=== PATIENT | female | born 1990 | race Asian ===

== ENCOUNTER 2021-03-13 09:42 | Outpatient (REF) | payer BC, SELFPAY ==
[2021-03-13 13:31] LABS: CT PCR NOT DETECTED (Not Detect.); NG PCR NOT DETECTED (Not Detect.)
[2021-03-15 21:12] LABS: HPV mRNA E6/E7 rflx Not Detected (Not Detected)
== END 2021-03-13 09:43 | disposition home or self-care (01) ==
LOC: HO.LAB 09:42
PROVIDERS: Visit Provider Advanced Practice Midwife
DX: Z01.419 Encounter for gynecological examination (general) (routine) without abnormal findings (principal); N89.8 Other specified noninflammatory disorders of vagina; Z20.2 Contact with and (suspected) exposure to infections with a predominantly sexual mode of transmission
CPT/HCPCS: 87491; 87591; 87624; 88142

== ENCOUNTER 2022-05-24 11:08 | Outpatient (REF) | payer BC, SELFPAY ==
[2022-05-24 14:32] LABS: CT PCR NOT DETECTED (Not Detect.); NG PCR NOT DETECTED (Not Detect.)
[2022-05-25 09:20] LABS: BV Int Neg Control Negative (Negative); BV Int Pos Control Positive (Positive)
[2022-05-26 14:37] LABS: HPV mRNA E6/E7 rflx Not Detected (Not Detected)
== END 2022-05-24 11:09 | disposition home or self-care (01) ==
LOC: HO.LAB 11:08
PROVIDERS: Visit Provider Advanced Practice Midwife
DX: Z01.411 Encounter for gynecological examination (general) (routine) with abnormal findings (principal); Z11.51 Encounter for screening for human papillomavirus (HPV); R87.615 Unsatisfactory cytologic smear of cervix
CPT/HCPCS: 87480; 87491; 87510; 87591; 87624; 87660; 88142

== ENCOUNTER 2022-07-10 15:42 | Outpatient (REF) | payer BC, SELFPAY ==
--- NOTE | ~2022-07-10 | US_ITS ---
EXAMINATION: US PELVIS CLINICAL INFORMATION: Pelvic and perineal pain COMPARISON: Previous pelvic ultrasound April 2019 TECHNIQUE: Ultrasound of the pelvis is performed using both transabdominal and transvaginal transducers along with Doppler. Transvaginal imaging is performed due to inadequate visualization transabdominally. FINDINGS: The uterus is anteverted and measures 7.9 x 3.8 x 5.4 cm in dimension. No focal uterine lesion is seen. Endometrial thickness is normal measuring 1.3 cm. There are nabothian cysts in the cervix. The ovaries are normal. The right ovary measures 3.5 x 2.6 x 2.1 cm. The left ovary measures 2.1 x 1.1 x 1.8 cm. There is no fluid in the pelvis. US/US pelvic and transvaginal IMPRESSION: Unremarkable exam.
== END 2022-07-10 15:43 | disposition home or self-care (01) ==
LOC: HO.US 15:42
PROVIDERS: PCP Internal Medicine; Visit Provider Advanced Practice Midwife
DX: R10.2 Pelvic and perineal pain (principal)
CPT/HCPCS: 76830; 76856

== ENCOUNTER 2023-07-26 13:20 | Outpatient (AMB) | payer BC, SELFPAY ==
--- NOTE | 2023-07-26 14:13 | MHC.OFFWIV ---
Intake Vital Signs 07/26/23 14:15 Weight 102 lb BP 100/62 Blood Pressure Location Lt brachial Position Sitting Pulse 78 Pulse Source Pulse Oximeter Temp 98.8 F Temp Source Oral Pulse Oximetry (%) 98 Oxygen Delivery Method Room Air Intake Visit Reasons: EP Cough 2 weeks (masked Intake Note: Patient here for cough that has been present for about 2 weeks. she states symptoms started after having her flu shot. Patient Tobacco Use Status: Never used Tobacco Allergies allergic rhinitis Allergy (Unknown, Uncoded 07/26/23 14:16) Runny Nose Do you need a note to return to daycare/school/sports/work: No HPI HPI Comments History of Present Illness Details This is a 33-year-old female who presents to the office today for sick visit. Patient complaining of a persistent dry cough x2 weeks. She denies any sputum production. She denies any fevers or chills. She does report some mild anterior chest pain with the cough. She denies any shortness of breath. She also reports some intermittent wheezing. She denies any congestion, rhinorrhea, otalgia, or sore throat. [facility], [facility] Surgical History H/O ovarian cystectomy Family History Maternal Grandmother Colon cancer Social History Household Members: Spouse Housing: House Alcohol intake: never Patient Tobacco Use Status: Never used Tobacco Sexual orientation: Straight/Heterosexual Gender identity: Female Female Reproductive History Menstrual Age of Menarche: 14 Review of Systems Const All systems reviewed & are unremarkable except as noted in HPI and below Reports no additional complaints Eyes Reports no additional complaints ENT Reports no additional complaints Card Reports no additional complaints Resp Reports no additional complaints GI Reports no additional complaints Reports no additional complaints Musc Reports no additional complaints Skin/Breast Reports system reviewed and no additional complaints, except as documented Neuro Reports no additional complaints Psych Reports no additional complaints Endo Reports no additional complaints Stiven/Lymph Reports no additional complaints Aller/Immun Reports no additional complaints Physical Exam Vital Signs: Last Vital Signs Temp 98.8 F 07/26/23 14:15 Pulse 78 07/26/23 14:15 BP 100/62 07/26/23 14:15 Pulse Ox 98 10/06/23 14:15 Oxygen Delivery Method Room Air 07/26/23 14:15 Const Other: Vital signs reviewed. Constitutional: Non-toxic appearing. No acute distress. Well-developed and well-nourished. HEENT: Normocephalic and atraumatic. Tympanic membranes without erythema, edema, or bulging bilaterally. External auditory canals without erythema or edema bilaterally. Moist mucous membranes. No pharyngeal erythema or exudates. Skin: Warm and dry. No rashes or lesions noted. Neck: Full and painless range of motion. No cervical lymphadenopathy. Cardio: Regular rate and rhythm. No murmurs, gallops, or rubs. No lower extremity edema. No JVD. Pulmonary: No respiratory distress. No accessory muscle usage. Clear to auscultation bilaterally without wheezing, crackles, or rhonchi. Gastrointestinal: Soft, nontender, and nondistended in all 4 quadrants. Normoactive bowel sounds in all 4 quadrants. Genitourinary: No CVA tenderness. Musculoskeletal: Normal range of motion in joints throughout the body. No deformity or other signs of injury. Neuro: Alert and oriented x4. Cranial nerves 2-12 grossly intact. No focal deficits appreciated. Psych: Normal mood and affect. Assessment & Plan Assessment & Plan (1) Acute bronchitis: Code(s): J20.9 - Acute bronchitis, unspecified Plan: Patient is presenting to the office complaining of a persistent dry cough as well as intermittent wheezing. On physical examination, her lungs are clear to auscultation bilaterally. Her vital signs are stable, her physical exam is otherwise benign, and she is overall nontoxic appearing. Her history and physical most consistent with an acute bronchitis. Patient was sent home on p.o. prednisone 40 mg daily x5 days as well as p.o. benzonatate 100 mg 3 times daily as needed for cough. Chest x-ray was obtained. We will send is Z-Alfred if there is any evidence of pneumonia. Otherwise, recommended symptomatic management including rest, increased fluids, advil/tylenol for pain/fever, lidocaine patches to the chest wall. and over the counter throat lozenges/decongestants. Patient advised to follow up here or go to the emergency room for worsening/persistent symptoms. Orders: Orders XR chest 2V Today R05.9 - Cough, unspecified Medications: New prednisone 40 mg (2 x 20 mg) PO DAILY 10 tabs 0RF benzonatate 100 mg PO TID PRN 21 caps 0RF cough Coding Level of Care Code Est Pt Level 3 (99926) Diagnoses Acute bronchitis J20.9
[2023-07-26 14:15] VITALS: BP 100/62; PULSE 78; TEMP 37.1; O2SAT 98
== END 2023-07-26 15:25 | disposition home or self-care (01) ==
PROVIDERS: PCP Internal Medicine; Visit Provider Physician Assistant Medical
DX: J20.9 Acute bronchitis, unspecified (principal)
CPT/HCPCS: 99213

== ENCOUNTER 2023-07-26 14:30 | Outpatient (REF) | payer BC, SELFPAY | END 2023-07-26 14:31 | disposition home or self-care (01) | LOC: HO.HMGCX 14:30 | PROVIDERS: Visit Provider Physician Assistant Medical | DX: R05.9 Cough, unspecified (principal) | CPT/HCPCS: 71046 ==

== ENCOUNTER 2023-08-27 09:07 | Outpatient (AMB) | payer BC, SELFPAY ==
--- NOTE | 2023-08-27 09:11 | MHC.OFFVIS ---
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 Doing well with no concerns. She tries to eat healthy and stays active with exercise. Regular monthly periods lasting 5-6 days. She is c/o painful menstrual cramping and occasional cramping without periods. Denies vaginal odor, discharge and abnormal bleeding. Currently sexually active, admits to UPI. Not on control at this time. She denies vaginal itching, but complains of occasional painful cramping following sex Sexually active with her STI screening offered; she accepts. Denies family history of breast, ovarian or colon cancer. Last pap smear 05/25/22, was negative, but with mild inflammation. When she was last seen she had vaginitis. This was managed with [ ], [facility] Surgical History H/O ovarian cystectomy Family History Maternal Grandmother Colon cancer Social History Household Members: Spouse Housing: House Alcohol intake: never Patient Tobacco Use Status: Never used Tobacco Sexual orientation: Straight/Heterosexual Gender identity: Female Female Reproductive History Menstrual Age of Menarche: 14 Duration of menses: 3-5 days Date of last menstrual period: 08/13/23 control method: none Total pregnancies: 0 Date of last pap smear: 05/24/22 (neg pap and hpv) Review of Systems Const All systems reviewed & are unremarkable except as noted in HPI and below Reports as per HPI Eyes Reports no additional complaints ENT Reports no additional complaints Card Reports no additional complaints Resp Reports no additional complaints GI Reports as per HPI and Reports no additional complaints Reports as per HPI Musc Reports no additional complaints Skin/Breast Reports as per HPI Neuro Reports no additional complaints Psych Reports no additional complaints Endo Reports no additional complaints Stiven/Lymph Reports no additional complaints Aller/Immun Reports no additional complaints Physical Exam Vital Signs: Last Vital Signs BP 96/66 08/27/23 09:12 BMI result Body Mass Index 19.6 Const General: cooperative, healthy appearing, no acute distress, well developed and alert Orientation/consciousness: patient oriented x3 HEENT Head: Yes normal to inspection Eyes General: appearance normal, both eyes and all related structures Neck Neck: Yes normal visual inspection Thyroid: Thyroid normal Chest Other: Thickening of left breast tissue, ~4cm area, at 2 o'clock Rash: Right breast, adjacent to areola at ~9 o'clock, 2-3cm dry, faintly pink to whitman in color Chest palpation & inspection: normal inspection of the chest, tenderness, rash and other (no puckering, dimpling, peau de orange, retraction, discharge, masses) Breast/axilla inspection: normal inspection of the breasts Breast/axilla palpation: normal palpation of the breasts Resp Effort & Inspection: normal respiratory effort GI Inspection: Yes normal to inspection Palpation (GI): Soft to palpation Rectal Exam - Female: deferred General: Yes bladder normal to palpation External Female Exam: normal external appearance and normal appearance of the urethra Speculum Exam - Vagina: normal appearance of the vagina, normal palpation and normal vaginal discharge (White) Speculum Exam - Cervix: normal appearance of the cervix and normal palpation Bimanual exam- vagina & uterus: normal bimanual exam, normal palpation, uterine size normal, bladder normal to palpation, normal palpation and non-tender Bimanual Exam- Adnexa, other: no masses Skin General skin exam: no rashes or lesions noted Rashes: no rashes Neuro General: patient oriented x3 Cognition (Neuro): normal cognition Extrem General: Yes normal to inspection Psych Attitude: cooperative Thought process: Normal thought process present Assessment & Plan Assessment & Plan (1) Encounter for annual routine gynecological examination: Code(s): Z01.419 - Encounter for gynecological examination (general) (routine) without abnormal findings Plan: Discussed: Current recommendations for pap smears per ASCCP guidelines. Breast awareness and periodic self breast exams. Maintaining a healthy lifestyle including a well balanced diet and routine exercise. Encouraged patient to sign up for patient portal. All of her questions and concerns were addressed to the best of my ability. She will return in one year for AG. STD screening ordered. Diagnositic mammogram ordered. Breast US ordered. She will follow up to review her test results when completed. This should include repeat breast exam (2) Rash: Code(s): R21 - Rash and other nonspecific skin eruption Plan: Right breast, adjacent to areola at ~9 o'clock, 2-3cm dry, faintly pink to whitman in color Encouraged use of OTC Hydrcortisone cream for 1 week. If this does not improve I recommend she be seen by a Rubber Belt Splicer. Will check at next f/u Orders: Orders CT NG by PCR Today N63.20 - Unspecified lump in the left breast, unspecified quadrant, N64.59 - Other signs and symptoms in breast, Z20.2 - Contact with and (suspected) exposure to infections with a predominantly sexual mode of transmission US breast LT complete Today N63.20 - Unspecified lump in the left breast, unspecified quadrant, N64.59 - Other signs and symptoms in breast Bacterial Vaginosis Panel Today N63.20 - Unspecified lump in the left breast, unspecified quadrant, N64.59 - Other signs and symptoms in breast, Z20.2 - Contact with and (suspected) exposure to infections with a predominantly sexual mode of transmission MM tomosynthesis diagnostic BI Today N63.20 - Unspecified lump in the left breast, unspecified quadrant, N64.59 - Other signs and symptoms in breast, Z12.31 - Encounter for screening mammogram for malignant neoplasm of breast Coding Level of Care Code Est Pt Prev Care 18-39y(56173) Diagnoses Encounter for annual routine gynecological examination Z01.419 Rash R21
[2023-08-27 09:12] VITALS: BP 96/66; BMI 19.6
== END 2023-08-27 09:44 | disposition home or self-care (01) ==
LOC: HO.HWS 09:07
PROVIDERS: PCP Internal Medicine; Visit Provider Advanced Practice Midwife
DX: Z01.419 Encounter for gynecological examination (general) (routine) without abnormal findings (principal); R21 Rash and other nonspecific skin eruption
CPT/HCPCS: 99395

== ENCOUNTER 2023-08-27 09:07 | Outpatient (REF) | payer BC, SELFPAY ==
[2023-08-27 13:48] LABS: CT PCR NOT DETECTED (Not Detect.); NG PCR NOT DETECTED (Not Detect.)
[2023-08-28 09:57] LABS: BV Int Neg Control Negative (Negative); BV Int Pos Control Positive (Positive)
== END 2023-08-27 09:08 | disposition home or self-care (01) ==
LOC: HO.LNP 09:07
PROVIDERS: PCP Internal Medicine; Visit Provider Advanced Practice Midwife
DX: Z20.2 Contact with and (suspected) exposure to infections with a predominantly sexual mode of transmission (principal); N63.20 Unspecified lump in the left breast, unspecified quadrant; N64.59 Other signs and symptoms in breast
CPT/HCPCS: 0353U; 87480; 87510; 87660

== ENCOUNTER 2023-08-27 09:40 | Outpatient (REF) | payer BC, SELFPAY | END 2023-08-27 09:41 | disposition home or self-care (01) | LOC: HO.LAB 09:40 | PROVIDERS: Visit Provider Advanced Practice Midwife | DX: Z13.89 Encounter for screening for other disorder (principal) ==

== ENCOUNTER 2023-09-17 14:21 | Outpatient (REF) | payer BC, SELFPAY ==
--- NOTE | ~2023-09-17 | MM_ITS ---
EXAMINATION: MM DIAGNOSTIC DIGITAL BREAST TOMOSYNTHESIS, BILATERAL US BREAST LIMITED, LEFT MAMMOGRAPHY: CLINICAL INFORMATION: Patient with palpable focus approximately 2:00 axis left breast. Baseline exam. COMPARISON: Mammography: None. Baseline exam. TECHNIQUE: Digital breast tomosynthesis is performed in both the craniocaudal and mediolateral oblique views along with computer-aided detection (CAD). Synthesized 2D images are generated from the tomosynthesis. FINDINGS: The breasts are extremely dense, which lowers the sensitivity of mammography (ACR BI-RADS breast composition Category d). There are scattered parenchymal punctate calcifications bilaterally without grouping, consistent with adenosis. No suspicious calcifications. Extremely dense parenchyma limits evaluation. Grossly no mass or correlate seen in the left breast upper outer quadrant in the region of palpable concern. This will be evaluated by ultrasound. Otherwise, no areas of parenchymal distortion or obvious masses. ULTRASOUND: CLINICAL INFORMATION: Patient with palpable focus approximately 2:00 axis left breast. Baseline exam. COMPARISON: None TECHNIQUE: Targeted sonographic evaluation left breast was performed using a high frequency linear transducer. Attention was paid to the region of palpable concern approximate 2:00 location. Selected archived documentation. FINDINGS: LEFT BREAST: There is a simple cyst in the 2:00 axis left breast, 7 cm from the nipple, bilobed, measuring 0.7 x 0.3 x 0.7 cm. No suspicious features. This likely correlates with the palpable focus of concern. There is otherwise no mass or additional abnormalities such as abnormal shadowing. Very dense tissue is identified. MM/MM tomosynthesis diagnostic BI IMPRESSION: No evidence of malignancy in either breast. Extremely dense breast tissue present with scattered calcifications likely representing adenosis. There is a simple bilobed cyst in the 2:00 left breast, 7 cm from the nipple, correlating with the area of palpable concern. This is benign. Recommend the patient resume routine annual screening mammography at age 40. OVERALL ASSESSMENT: Mammography: BI-RADS 2 - Benign Findings Ultrasound: BI-RADS 2 - Benign Findings RECOMMENDATION: Mammo at 40 or earlier if clinically needed Results were provided to the patient at time of visit by the technologist. This patient's information was entered into a reminder system with a target due date for their next mammogram.
== END 2023-09-17 14:22 | disposition home or self-care (01) ==
LOC: HO.MAMMO 14:21
PROVIDERS: PCP Internal Medicine; Visit Provider Advanced Practice Midwife
DX: N63.21 Unspecified lump in the left breast, upper outer quadrant (principal); N64.59 Other signs and symptoms in breast
CPT/HCPCS: 76642; 77062; 77066

== ENCOUNTER → 2023-09-17 14:30 | Outpatient (BNV) | payer BC, SELFPAY | PROVIDERS: PCP Internal Medicine; Visit Provider Radiology Diagnostic Radiology | DX: R92.1 Mammographic calcification found on diagnostic imaging of breast (principal); N60.02 Solitary cyst of left breast | CPT/HCPCS: 76642; 77062; 77066 ==

== ENCOUNTER 2023-10-02 13:17 | Outpatient (AMB) | payer BC, SELFPAY ==
--- NOTE | 2023-10-02 13:28 | A.OFFVIS_ITS ---
Intake Vital Signs 10/02/23 13:29 Height 5 ft 1 in Weight 103 lb 9.876 oz BMI 19.6 BP 88/52 L Intake Visit Reasons: Breast ultra sound follow up Filteration Operator Required: No Information Interpreted: non-clinical & clinical Undertaker Helper: Undertaker Helper Present (Becky CABRAL) Accompanied by: Self / Same As Patient Allergies allergic rhinitis Allergy (Unknown, Uncoded 10/02/23 13:34) Runny Nose Is last menstrual period known: Yes Last menstrual period: 09/10/23 HPI HPI Comments History of Present Illness Details Patient is here for an ultrasound and mammogram breast follow-up. At her last exam in August she had some areas of thickening on exam. PFSH Surgical History H/O ovarian cystectomy Family History Maternal Grandmother Colon cancer Social History Household Members: Spouse Housing: House Alcohol intake: never Patient Tobacco Use Status: Never used Tobacco Sexual orientation: Straight/Heterosexual Gender identity: Female Female Reproductive History Menstrual Age of Menarche: 14 Date of last menstrual period: 09/10/23 Review of Systems Const All systems reviewed & are unremarkable except as noted in HPI and below Reports no additional complaints Skin/Breast Reports system reviewed and no additional complaints, except as documented and Reports as per HPI Physical Exam Vital Signs: Last Vital Signs BP 88/52 L 10/02/23 13:29 BMI result Body Mass Index 19.6 Const General: cooperative, healthy appearing and no acute distress Chest Other: Bilateral tenderness, no abnormalities noted. Breast/axilla inspection: normal inspection of the breasts and normal inspection of the axillae Breast/axilla palpation: normal palpation of the breasts Skin General skin exam: no rashes or lesions noted Results Reviewed Results Reviewed: Patient: Katherin Pacheco MR#: [id number] : 1990 Acct:[id number] Age/Sex: 33 / F ADM Date: 09/17/23 Loc: HO.MAMMO Attending Dr: Marce Eisenberg CNM Ordering Physician: Marce Eisenberg CNM Date of Service: 09/17/23 Procedure(s): US breast LT limited mamm only Accession Number(s): [id number] cc: Marce Eisenberg CNM; Haroon Stinson MD~ EXAMINATION: MM DIAGNOSTIC DIGITAL BREAST TOMOSYNTHESIS, BILATERAL US BREAST LIMITED, LEFT MAMMOGRAPHY: CLINICAL INFORMATION: Patient with palpable focus approximately 2:00 axis left breast. Baseline exam. COMPARISON: Mammography: None. Baseline exam. TECHNIQUE: Digital breast tomosynthesis is performed in both the craniocaudal and mediolateral oblique views along with computer-aided detection (CAD). Synthesized 2D images are generated from the tomosynthesis. FINDINGS: The breasts are extremely dense, which lowers the sensitivity of mammography (ACR BI-RADS breast composition Category d). There are scattered parenchymal punctate calcifications bilaterally without grouping, consistent with adenosis. No suspicious calcifications. Extremely dense parenchyma limits evaluation. Grossly no mass or correlate seen in the left breast upper outer quadrant in the region of palpable concern. This will be evaluated by ultrasound. Otherwise, no areas of parenchymal distortion or obvious masses. ULTRASOUND: CLINICAL INFORMATION: Patient with palpable focus approximately 2:00 axis left breast. Baseline exam. COMPARISON: None TECHNIQUE: Targeted sonographic evaluation left breast was performed using a high frequency linear transducer. Attention was paid to the region of palpable concern approximate 2:00 location. Selected archived documentation. FINDINGS: LEFT BREAST: There is a simple cyst in the 2:00 axis left breast, 7 cm from the nipple, bilobed, measuring 0.7 x 0.3 x 0.7 cm. No suspicious features. This likely correlates with the palpable focus of concern. There is otherwise no mass or additional abnormalities such as abnormal shadowing. Very dense tissue is identified. US/US breast LT limited mamm only IMPRESSION: No evidence of malignancy in either breast. Extremely dense breast tissue present with scattered calcifications likely representing adenosis. There is a simple bilobed cyst in the 2:00 left breast, 7 cm from the nipple, correlating with the area of palpable concern. This is benign. Recommend the patient resume routine annual screening mammography at age 40. OVERALL ASSESSMENT: Mammography: BI-RADS 2 - Benign Findings Ultrasound: BI-RADS 2 - Benign Findings RECOMMENDATION: Mammo at 40 or earlier if clinically needed Results were provided to the patient at time of visit by the technologist. This patient's information was entered into a reminder system with a target due date for their next mammogram. Dictated By: Karan Bucio MD Signed By: <Electronically signed by Karan Bucio MD in OV> 09/17/23 1542 Assessment & Plan Assessment & Plan (1) Breast cyst: Code(s): N60.09 - Solitary cyst of unspecified breast Qualifiers: Laterality: left Qualified Code(s): N60.02 - Solitary cyst of left breast Plan Discussed: findings of ultrasound and mammogram. Small cyst located on her left side. She reports her cycle is due in about a week. Reassured the breast exam was normal today. It is common to have breast tenderness 1-2 weeks before the cycle begins which should improve soon after the cycle and but can return on a monthly interval. If there is increased pain to that area or concerns she should call the office sooner for follow-up visit. Next appointment is August 2024 for her annual exam. All of her questions and concerns were addressed to the best of my ability and shared decision making. She is agreeable to the plan of care. Coding Level of Care Code Est Pt Level 3 (21503) Diagnoses Cyst of left breast N60.02 Laterality: left
[2023-10-02 13:29] VITALS: BP 88/52; BMI 19.6
== END 2023-10-02 14:10 | disposition home or self-care (01) ==
PROVIDERS: PCP Internal Medicine; Visit Provider Advanced Practice Midwife
DX: N60.02 Solitary cyst of left breast (principal)
CPT/HCPCS: 99213

== ENCOUNTER → 2023-10-02 13:17 | Outpatient (BNVA) | payer BC, SELFPAY | PROVIDERS: PCP Internal Medicine; Visit Provider Advanced Practice Midwife ==

== ENCOUNTER 2023-11-21 13:07 | Outpatient (AMB) | payer BC, SELFPAY ==
--- NOTE | 2023-11-21 13:10 | A.OFFPC_ITS ---
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 [facility] Medical History (Updated 11/21/23 @ 13:51 by Haroon Stinson MD) Bacterial vaginosis Encounter to discuss test results Pelvic pain in female Encounter for repeat Pap smear due to previous insufficient cervical cells Encounter for annual routine gynecological examination Surgical History H/O ovarian cystectomy Family History (Updated 11/21/23 @ 13:52 by Haroon Stinson MD) Maternal Grandmother Colon cancer, Onset Age: 70 Father Myocardial infarct Social History Household Members: Spouse Housing: House Alcohol intake: never Patient Tobacco Use Status: Never used Tobacco service: No Current occupational status: employed Sexual orientation: Straight/Heterosexual Gender identity: Female Cognitive needs: No Hearing needs: No Vision needs: No Female Reproductive History Menstrual Age of Menarche: 14 Questionnaire PHQ-9 Over the last 2 weeks, how often have you been bothered by any of the following problems? 1. Little interest or pleasure in doing things: not at all 2. Feeling down, depressed, or hopeless: not at all 3. Trouble falling or staying asleep, or sleeping too much: not at all 4. Feeling tired or having little energy: not at all 5. Poor appetite or overeating: not at all 6. Feeling bad about yourself - or that you are a failure or have let yourself or your family down: not at all 7. Trouble concentrating on things, such as reading the newspaper or watching television: not at all 8. Moving or speaking so slowly that other people could have noticed. Or the opposite - being so fidgety or restless that you have been moving around a lot more than usual: not at all 9. Thoughts that you would be better off or of hurting yourself in some way: not at all Total score: 0 Depression Screening Interpretation: Negative Depression Screening Done: Yes Source: Developed by Drs. Caleb Eubanks, Adriana Linares, Cb Barry and colleagues, with an educational yousif from [employer]. Thrive Questionnaire Date Thrive assessed: 11/21/23 I am a: Patient What is your living situation today?: I have a steady place to live Within the past 12 months, did the food you bought not last and you didn't have the money to get more?: Never true Within the past 12 months, did you worry whether your food would run out before you got money to buy more?: Never true Do you have trouble paying for medicines?: No Do you have trouble getting transportation to medical appointments?: No Do you have trouble paying your heating and electricity bill?: No Do you have trouble taking care of your child, family member or friend?: No Do you have trouble with day-to-day activities such as bathing, preparing meals, shopping, managing finances, etc.?: No Are you currently unemployed and looking for a job?: No Are you interested in more education?: No Please select the resources that you would like help with: None THRIVE Score: 0 AUDIT C Alcohol Use Questionnaire (AUDIT-C) 1. How often do you have a drink containing alcohol?: Never 2. How many drinks containing alcohol do you have on a typical day when you are drinking?: 1 or 2 (0) 3. How often do you have six or more drinks on one occasion?: Never Total Score: 0 HANNAH-7 AMB Questionnaire HANNAH-7 Date HANNAH - 7 assessed: 11/21/23 Feeling nervous, anxious, or on edge: 0 = Not at all Not being able to stop or control worryin = Not at all Worrying too much about different things: 0 = Not at all Trouble relaxin = Not at all Being so restless that it is hard to sit still: 0 = Not at all Becoming easily annoyed or irritable: 0 = Not at all Feeling afraid as if something awful might happen: 0 = Not at all Total HANNAH-7 score (0-4 normal; 5-9 mild; 10-14 moderate; 15-21 severe): 0 Source: Developed by Drs. Caleb Eubanks, Adriana Linares, Cb Baryr and colleagues, with an educational yuosif from [employer]. Physical exam (Primary Care) Vital Signs: Last Vital Signs Pulse 85 11/21/23 13:11 BP 96/64 11/21/23 13:11 Pulse Ox 99 11/21/23 13:11 Oxygen Delivery Method Room Air 11/21/23 13:11 BMI result Body Mass Index 20.0 Tobacco/Smoking Status: Tobacco use Status Tobacco use date assessed 11/21/23 11/21/23 13:11 Patient Tobacco Use Status Never used Tobacco 11/21/23 13:11 PHQ-9: PHQ-9 Score PHQ-9: Total score 0 11/21/23 13:45 Depression Screening Interpretation: Negative Thrive Assessment: Date of Thrive Assessment Date Thrive assessed 11/21/23 11/21/23 13:11 Const General: alert; No acute distress Eyes Conjunctivae: conjunctivae normal Resp Auscultation: clear to auscultation bilaterally Cardio Rate: regular rate Rhythm: regular rhythm GI Inspection: Yes normal to inspection Extrem General: Yes normal to inspection and No edema Assessment and Plan Assessment & Plan (1) Cyst of breast, left, benign solitary: Comment: 08/2023There is a simple bilobed cyst in the 2:00 left breast, 7 cm from the nipple, correlating with the area of palpable concern. This is benign. Code(s): N60.02 - Solitary cyst of left breast (2) GERD (gastroesophageal reflux disease): Code(s): K21.9 - Gastro-esophageal reflux disease without esophagitis (3) LFT elevation: Code(s): R79.89 - Other specified abnormal findings of blood chemistry Orders: Orders FL upper GI series Today K21.9 - Gastro-esophageal reflux disease without esophagitis, R13.10 - Dysphagia, unspecified Lipid Panel Today E78.00 - Pure hypercholesterolemia, unspecified, R79. - Other specified abnormal findings of blood chemistry Hepatitis B,C Profile Today R7. - Other specified abnormal findings of blood chemistry Free T4 (Free Thyroxine) Today R7. - Other specified abnormal findings of blood chemistry Vitamin B12 and Folate Today R7. - Other specified abnormal findings of blood chemistry US abdomen complete Today R7. - Other specified abnormal findings of blood chemistry Complete Blood Count Auto Diff Today R7 - Other specified abnormal findings of blood chemistry Comprehensive Met. Panel Today R7 - Other specified abnormal findings of bl ood chemistry Thyroid Stimulating Hormone Today R7. - Other specified abnormal findings of blood chemistry Vitamin D 25-OH Total Today R7. - Other specified abnormal findings of blood chemistry Coding Level of Care Code New Pt Level 4 (80760) Diagnoses Cyst of breast, left, benign solitary N60.02 GERD (gastroesophageal reflux disease) K21.9 LFT elevation R79.
[2023-11-21 13:11] VITALS: BP 96/64; PULSE 85; O2SAT 99
== END 2023-11-21 14:02 | disposition home or self-care (01) ==
PROVIDERS: PCP Internal Medicine; Visit Provider Internal Medicine
DX: N60.02 Solitary cyst of left breast (principal); K21.9 Gastro-esophageal reflux disease without esophagitis; R79.89 Other specified abnormal findings of blood chemistry
CPT/HCPCS: 99204

== ENCOUNTER 2023-11-28 07:51 | Outpatient (REF) | payer BC, SELFPAY ==
[2023-11-28 08:09] LABS: MANUAL DIFF FLAG NO
[2023-11-28 08:36] LABS: Basophils Percent Auto 0.7 % (0-2); Eosinophils Absolute Auto 0.1 X10*3/uL (0.0-0.4); Eosinophils Percent Auto 1.3 % (0-4); Hematocrit 39.5 % (37.0-47.0); Hemoglobin 13.6 g/dl (12.0-16.0); Imm Gran Abs Auto 0.01 X10*3/uL (0.00-0.03); Imm Gran Pct Auto 0.2 % (0.0-0.4); Lymphocytes Absolute Auto 1.6 X10*3/uL (1.2-4.9); Lymphocytes Percent Auto 34.7 % (20-40); Mean Corpuscular HGB Conc 34.4 g/dl (31.0-35.0); Mean Corpuscular Hemoglobin 31.1 pg (27.0-33.0); Mean Corpuscular Volume 90.4 fL (80.0-98.0); Mean Platelet Volume 10.2 fL (9.4-12.3); Monocytes Absolute Auto 0.2 X10*3/uL (0.1-1.2); Monocytes Percent Auto 5.3 % (2-11); Neutrophils Absolute Auto 2.6 x10*3/uL (2.0-8.3); Neutrophils Percent Auto 57.8 % (45-73); Platelet Count 222 X10*3/uL (160-400); Red Blood Count 4.37 X10*6/uL (4.20-5.50); Red Cell Distribution Width 11.6 % (11.0-16.0); White Blood Count 4.5 X10*3/uL (4.8-10.8)
[2023-11-28 09:08] LABS: Alanine Aminotransferase 14 U/L (0-31); Albumin Level 4.2 g/dL (3.5-5.0); Alkaline Phosphatase 44 U/L (39-117); Anion Gap 12 (12-20); Aspartate Amino Transferase 13 U/L (5-31); Bilirubin Total 0.4 mg/dL (0.0-1.0); Blood Urea Nitrogen 12 mg/dL (9-16); Carbon Dioxide 25 mmol/L (22-29); Chloride 105 mmol/L (96-108); Cholesterol 195 mg/dL (<200); Estimated Glomerular Filt Rate > 60; Glucose Random 102 mg/dL (60-115); HDL Cholesterol 52 mg/dL (>40); LDL Cholesterol Calculated 134 mg/dL (<100); Potassium 3.8 mmol/L (3.3-5.1); Sodium 138 mmol/L (135-145); Total Protein 7.2 g/dL (6.5-8.0); Triglycerides 49 mg/dL (<150)
[2023-11-28 09:28] LABS: Thyroid Stimulating Hormone 1.34 uIU/mL (0.32-4.0); Vitamin D 25-OH Total 10.3 ng/mL (>30)
[2023-11-28 09:34] LABS: Folate 7.6 ng/mL (> or = 4.0); Vitamin B12 566 pg/mL (200-900)
[2023-11-28 09:37] LABS: HBS Num1 286.51 mIU/mL (0-7.99); HBc Num1 0.11 S/CO (0.00-0.79); HBsAGNum1 0.34 S/CO (0.00-0.99); Hepatitis B Core Antibody Nonreactive (Nonreactive); Hepatitis B Surface Antigen Negative (Negative); ~Hepatitis B Surface Antibody REACTIVE (Nonreactive); ~Hepatitis C Antibody Nonreactive (Nonreactive)
== END 2023-11-28 07:52 | disposition home or self-care (01) ==
LOC: HO.LAB 07:51
PROVIDERS: PCP Internal Medicine; Visit Provider Internal Medicine
DX: R79.89 Other specified abnormal findings of blood chemistry (principal); E78.00 Pure hypercholesterolemia, unspecified
CPT/HCPCS: 36415; 80053; 80061; 82306; 82607; 82746; 84439; 84443; 85025; 86704; 86706; 86803; 87340

== ENCOUNTER 2023-12-26 07:55 | Outpatient (REF) | payer BC, SELFPAY ==
--- NOTE | ~2023-12-26 | US_ITS ---
EXAMINATION: US ABDOMEN COMPLETE CLINICAL INFORMATION: Other specified abnormal findings of blood chemistry. COMPARISON: None available. TECHNIQUE: Real-time imaging of the abdominal viscera. FINDINGS: PANCREAS: Normal. ABDOMINAL AORTA: The proximal, mid, and distal segments are normal in caliber. INFERIOR VENA CAVA: Visualized portions are normal. LIVER: Normal. The liver is normal in size. The liver contour is normal. Parenchymal echogenicity is normal. No focal hepatic lesion. There is no intrahepatic biliary duct dilatation seen. GALLBLADDER: Normal. The gallbladder is physiologically distended without evidence of stones, sludge, polyps, wall thickening or pericholecystic fluid. COMMON BILE DUCT: Normal in caliber measuring 0.4 cm in diameter. RIGHT KIDNEY: Normal. No hydronephrosis. No renal calculi or focal parenchymal lesions. The kidney measures 10.2 cm in maximum dimension. LEFT KIDNEY: Normal. No hydronephrosis. No renal calculi or focal parenchymal lesions. The kidney measures 9.4 cm in maximum dimension. SPLEEN: Normal. The spleen measures 7.2 cm in maximum dimension. FREE FLUID: None. US/US abdomen complete IMPRESSION: Normal abdominal ultrasound.
== END 2023-12-26 07:56 | disposition home or self-care (01) ==
LOC: HO.US 07:55
PROVIDERS: PCP Internal Medicine; Visit Provider Internal Medicine
DX: R79.89 Other specified abnormal findings of blood chemistry (principal)
CPT/HCPCS: 76700

== ENCOUNTER 2024-01-21 07:54 | Outpatient (REF) | payer BC, SELFPAY ==
--- NOTE | ~2024-01-21 | FL_ITS ---
EXAMINATION: XR FLUOROSCOPY UPPER GI WITH AIR CLINICAL INFORMATION: Reflux COMPARISON: None TECHNIQUE: Fluoroscopic air contrast upper GI examination was performed utilizing standard techniques with thin and thick barium and effervescent granules. Numerous spot images were obtained. FINDINGS: Lateral cine images of the oropharynx and hypopharynx demonstrate normal swallow mechanism with normal epiglottic inversion and soft palate elevation. No tracheal penetration, glottic or subglottic aspiration identified. No nasopharyngeal reflux present. Hypopharyngeal structures appear normal without evidence of mass or diverticulum. There was no significant cricopharyngeal achalasia. Dual and single contrast images of the esophagus demonstrate normal caliber, contour, and mucosal pattern. No evidence of stricture, mass, or ulcerations identified. Esophageal peristalsis was normal. No evidence of hiatus hernia identified. A small amount of reflux is seen in the distal esophagus. Dual contrast and single contrast images of the stomach demonstrated a normal contour. Gastric rugal folds appear mildly thickened. No masses or ulcerations are seen. A few small well-circumscribed filling defects are seen in the gastric body that likely represent hyperplastic polyps. Contrast freely passed into the gastric antrum and duodenal bulb without delay. Single and air-contrast images of the duodenal bulb demonstrate no abnormality. The duodenal sweep has a normal appearance, course, and mucosal fold appearance. The imaged proximal jejunum has a normal fold pattern and caliber. FLUOROSCOPY TIME: 3 minutes 58 seconds Number of Spot Images: 11 Number of Cine: 9 DOSE AREA PRODUCT: 1345 uGy-m2 (microgray-meter squared) FL/FL upper GI w air IMPRESSION: 1. Mild gastroesophageal reflux 2. Mildly thickened gastric rugal folds that likely represent gastritis. 3. Multiple small well-circumscribed filling defects in the gastric body likely represent benign hyperplastic polyps. This procedure was performed by Casa Blank PA-C, and supervised by Dr. Bucio
== END 2024-01-21 07:55 | disposition home or self-care (01) ==
LOC: HO.XRAY 07:54
PROVIDERS: PCP Internal Medicine; Visit Provider Internal Medicine
DX: R13.10 Dysphagia, unspecified (principal); K21.9 Gastro-esophageal reflux disease without esophagitis
CPT/HCPCS: 74246

== ENCOUNTER → 2024-01-21 07:56 | Outpatient (BNV) | payer BC, SELFPAY | PROVIDERS: PCP Internal Medicine; Visit Provider Physician Assistant Surgical | DX: K21.9 Gastro-esophageal reflux disease without esophagitis (principal) | CPT/HCPCS: 74246 ==

== ENCOUNTER 2024-06-09 14:58 | Outpatient (AMB) | payer BC, SELFPAY ==
[2024-06-09 15:01] VITALS: BP 98/60; PULSE 82; O2SAT 99; BMI 20.6
--- NOTE | 2024-06-09 15:01 | MHC.PC.OV ---
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 Patient's mammogram is up-to-date. Review of the notes had an upper GI series showing mild gastroesophageal reflux disease with mildly thickened rugal folds likely representing gastritis also noted multiple small well-circumscribed filling defects in the gastric body likely representing hyperplastic polyps. Patient also had an ultrasound of the abdomen showing normal. occ dizzy , trouble sleeping PFSH Medical History (Updated 06/09/24 @ 15:48 by Haroon Stinson MD) Bacterial vaginosis Encounter to discuss test results Pelvic pain in female Encounter for repeat Pap smear due to previous insufficient cervical cells Encounter for annual routine gynecological examination Surgical History H/O ovarian cystectomy Family History Maternal Grandmother Colon cancer, Onset Age: 70 Father Myocardial infarct Social History Household Members: Spouse Housing: House Alcohol intake: never Patient Tobacco Use Status: Never used Tobacco service: No Current occupational status: employed Sexual orientation: Straight/Heterosexual Gender identity: Female Cognitive needs: No Hearing needs: No Vision needs: No Female Reproductive History Menstrual Age of Menarche: 14 Questionnaire PHQ-9 Over the last 2 weeks, how often have you been bothered by any of the following problems? 1. Little interest or pleasure in doing things: not at all 2. Feeling down, depressed, or hopeless: not at all 3. Trouble falling or staying asleep, or sleeping too much: not at all 4. Feeling tired or having little energy: not at all 5. Poor appetite or overeating: not at all 6. Feeling bad about yourself - or that you are a failure or have let yourself or your family down: not at all 7. Trouble concentrating on things, such as reading the newspaper or watching television: not at all 8. Moving or speaking so slowly that other people could have noticed. Or the opposite - being so fidgety or restless that you have been moving around a lot more than usual: not at all 9. Thoughts that you would be better off or of hurting yourself in some way: not at all Total score: 0 Depression Screening Interpretation: Negative Depression Screening Done: Yes Source: Developed by Drs. Caleb Eubanks, Adriana Linares, Cb Barry and colleagues, with an educational yousif from [employer]. Thrive Questionnaire Date Thrive assessed: 06/09/24 I am a: Patient What is your living situation today?: I have a steady place to live Within the past 12 months, did the food you bought not last and you didn't have the money to get more?: Never true Within the past 12 months, did you worry whether your food would run out before you got money to buy more?: Never true Do you have trouble paying for medicines?: No Do you have trouble getting transportation to medical appointments?: No Do you have trouble paying your heating and electricity bill?: No Do you have trouble taking care of your child, family member or friend?: No Do you have trouble with day-to-day activities such as bathing, preparing meals, shopping, managing finances, etc.?: No Are you currently unemployed and looking for a job?: No Are you interested in more education?: No Please select the resources that you would like help with: None Currently or been in a relationship where the following occur: No concerns reported THRIVE Score: 0 AUDIT C Alcohol Use Questionnaire (AUDIT-C) 1. How often do you have a drink containing alcohol?: Never 2. How many drinks containing alcohol do you have on a typical day when you are drinking?: 1 or 2 (0) 3. How often do you have six or more drinks on one occasion?: Never Total Score: 0 HANNAH-7 AMB Questionnaire HANNAH-7 Date HANNAH - 7 assessed: 06/09/24 Feeling nervous, anxious, or on edge: 0 = Not at all Not being able to stop or control worryin = Not at all Worrying too much about different things: 0 = Not at all Trouble relaxin = Not at all Being so restless that it is hard to sit still: 0 = Not at all Becoming easily annoyed or irritable: 0 = Not at all Feeling afraid as if something awful might happen: 0 = Not at all Total HANNAH-7 score (0-4 normal; 5-9 mild; 10-14 moderate; 15-21 severe): 0 Source: Developed by Drs. Caleb Eubanks, Adriana Linares, Cb Barry and colleagues, with an educational yousif from [employer]. Review of Systems Const Denies poor appetite and Denies weakness Eyes Denies no additional complaints ENT Reports Normal hearing present, Denies dizziness, Denies nasal congestion, Denies tinnitus and Denies sore throat Card Denies chest pain, Denies syncope, Denies rapid heart rate and Denies dyspnea Resp Denies cough and Denies dyspnea GI Denies change in stool character, Reports constipation, Denies diarrhea, Denies nausea and Denies vomiting Denies urinary frequency, Denies difficulty voiding and Denies dysuria Neuro Reports Normal hearing present, Denies confusion, Denies dizziness, Denies syncope and Denies weakness Psych Denies confusion Physical exam (Primary Care) Vital Signs: Last Vital Signs Pulse 82 06/09/24 15:01 BP 98/60 06/09/24 15:01 Pulse Ox 99 06/09/24 15:01 Oxygen Delivery Method Room Air 06/09/24 15:01 BMI result Body Mass Index 20.6 Tobacco/Smoking Status: Tobacco use Status Tobacco use date assessed 06/09/24 06/09/24 15:03 Patient Tobacco Use Status Never used Tobacco 06/09/24 15:03 PHQ-9: PHQ-9 Score PHQ-9: Total score 0 06/09/24 15:03 Depression Screening Interpretation: Negative Thrive Assessment: Date of Thrive Assessment Date Thrive assessed 06/09/24 06/09/24 15:03 Currently or been in a relationship where the following occur: No concerns reported Const General: No confusion Orientation/consciousness: No confusion HENMT Head: Yes normocephalic Ears: external ears normal and TM's normal bilaterally Face and sinus: Yes normal facial exam Mouth: moist mucous membranes Throat: Yes tonsils normal Eyes Conjunctivae: conjunctivae normal Pupils: Equal, round and reactive pupils present and Pupil accommodation reflex normal Direct Ophthalmoscopy: normal light reflex Neck Neck: No lymphadenopathy Thyroid: Thyroid normal Chest Chest palpation & inspection: normal inspection of the chest Resp Effort & Inspection: normal respiratory effort and no audible wheezes Auscultation: clear to auscultation bilaterally, no crackles, no wheezes and lung sounds not diminished Cardio Rate: regular rate Rhythm: regular rhythm Peripheral pulses: radial pulses present and dorsalis pedis present GI Palpation (GI): no masses Auscultation: normal bowel sounds and normoactive bowel sounds Rectal Exam - Female: deferred Skin General skin exam: no rashes or lesions noted Rashes: no rashes Neuro General: No confusion Cranial nerves: Yes Equal, round and reactive pupils present and Yes Normal hearing present Cognition (Neuro): normal cognition Gait exam (Neuro): Normal gait present Motor exam (neuro): 5/5 motor strength present throughout Deep tendon reflexes (DTR's): Right brachioradialis reflex intensity grade: 2+, Left brachioradialis reflex intensity grade: 2+, Right patellar reflex intensity grade: 2+ and Left patellar reflex intensity grade: 2+ Extrem General: No edema Assessment and Plan Assessment & Plan (1) Annual physical exam: Code(s): Z00.00 - Encounter for general adult medical examination without abnormal findings Plan: Patient is advised to eat healthy, keep well hydrated, keep active and have adequate sleep. (2) GERD (gastroesophageal reflux disease): Code(s): K21.9 - Gastro-esophageal reflux disease without esophagitis Plan: Avoid the foods that causes that usually spicy foods, tomato products, juices, coffee, soda and foods that your sensitive to. After eating do not lie down, allow 3-4 hours before in lie down. And keep the head of bed above 30 degrees to avoid the acid from going up. (3) Impaired glucose tolerance: Code(s): R73.02 - Impaired glucose tolerance (oral) Plan: Decrease the amount of carbohydrate intake, pasta, bread, rice and potatoes are all sugar and that is aside from all the sweet stuff, remember that fruits are good but they are Sweet also. (4) Hypercholesterolemia: Code(s): E78.00 - Pure hypercholesterolemia, unspecified Plan: Avoid fried foods, chicken skin, eggs, butter margarine, pastries and meat. Be it pork or beef they have a lot of cholesterol LDL goal of less than 130 and triglyceride of less than 150 Coding Level of Care Code Est Pt Prev Care 18-39y(63777) Diagnoses Annual physical exam Z00.00 GERD (gastroesophageal reflux disease) K21.9 Impaired glucose tolerance R73.02 Hypercholesterolemia E78.00
== END 2024-06-09 16:08 | disposition home or self-care (01) ==
PROVIDERS: PCP Internal Medicine; Visit Provider Internal Medicine
DX: Z00.00 Encounter for general adult medical examination without abnormal findings (principal); K21.9 Gastro-esophageal reflux disease without esophagitis; R73.02 Impaired glucose tolerance (oral); E78.00 Pure hypercholesterolemia, unspecified
CPT/HCPCS: 99395

== ENCOUNTER 2024-12-30 14:34 | Outpatient (AMB) | payer BC, SELFPAY ==
--- NOTE | 2024-12-30 14:36 | A.OFFVIS_ITS ---
Vital Signs 12/30/24 14:37 Height 5 ft 1 in Weight 105 lb BMI 19.8 BP 110/64 Intake Visit Reasons: DIRECTOR FACILITIES MAINTENANCE annual exam/DO NOT RS Truss Builder: Truss Builder Present (Keri) Allergies allergic rhinitis Allergy (Unknown, Uncoded 12/30/24 14:37) Runny Nose Is last menstrual period known: Yes Last menstrual period: 12/30/24 HPI Comments Details: She is a premenopausal woman presenting for annual examination. Doing well with cloth shrinking tester concerns. Sees a Derm for her rosacea treatment. Regular monthly menses. Has her cycle today, moderate flow. Currently is sexually active with using withdrawal method. Not interested in at this time but not actively preventing, if it happened she would be accepting. She denies vaginal itching and irritation. STI screening offered; she declines. She tries to eat healthy and stays active with exercise. Denies family history of breast or ovarian cancer. Family history of colon cancer. Last pap smear 2021, negative. [facility] Medical History (Updated 12/30/24 @ 15:20 by Marce Eisenberg CNM) Encounter to discuss test results Surgical History H/O ovarian cystectomy Family History (Updated 12/30/24 @ 15:03 by Sachi Suarez [facility]) Father Myocardial infarct Paternal Grandmother Colon cancer Social History (Updated 12/30/24 @ 14:48 by Marce Eisenberg CNM) Household Members: Spouse Housing: House Alcohol intake: never Patient Tobacco Use Status: Never used Tobacco service: No Current occupational status: employed Current occupation: IT Sexual orientation: Straight/Heterosexual Gender identity: Female Cognitive needs: No Hearing needs: No Vision needs: No Female Reproductive History Menstrual Age of Menarche: 14 Date of last menstrual period: 12/30/24 Total pregnancies: 0 Date of last pap smear: 05/24/22 (neg pap and hpv) Review of Systems Const All systems reviewed & are unremarkable except as noted in HPI and below Reports as per HPI Eyes Reports no additional complaints ENT Reports no additional complaints Card Reports no additional complaints Resp Reports no additional complaints GI Reports as per HPI and Reports no additional complaints Reports as per HPI Musc Reports no additional complaints Skin/Breast Reports as per HPI Neuro Reports no additional complaints Psych Reports no additional complaints Endo Reports no additional complaints Stiven/Lymph Reports no additional complaints Aller/Immun Reports no additional complaints Physical Exam Vital Signs: Last Vital Signs BP 110/64 12/30/24 14:37 BMI result Body Mass Index 19.8 Const General: cooperative, healthy appearing, no acute distress, well developed and alert Orientation/consciousness: patient oriented x3 HEENT Head: Yes normal to inspection Eyes General: appearance normal, both eyes and all related structures Neck Neck: Yes normal visual inspection Thyroid: Thyroid normal Chest Chest palpation & inspection: normal inspection of the chest and other (no puckering, dimpling, peau de orange, retraction, discharge, masses) Breast/axilla inspection: normal inspection of the breasts Breast/axilla palpation: normal palpation of the breasts Resp Effort & Inspection: normal respiratory effort GI Inspection: Yes normal to inspection Palpation (GI): Soft to palpation Rectal Exam - Female: deferred General: Yes bladder normal to palpation External Female Exam: normal external appearance and normal appearance of the urethra Speculum Exam - Vagina: normal appearance of the vagina, normal palpation, normal vaginal discharge and vaginal bleeding Speculum Exam - Cervix: normal appearance of the cervix and normal palpation Bimanual exam- vagina & uterus: normal bimanual exam, normal palpation, uterine size normal, bladder normal to palpation, normal palpation and non-tender Bimanual Exam- Adnexa, other: no masses OB/external & speculum: vaginal bleeding Skin Other: Multiple nevi General skin exam: no rashes or lesions noted Rashes: no rashes Neuro General: patient oriented x3 Cognition (Neuro): normal cognition Extrem General: Yes normal to inspection Psych Attitude: cooperative Thought process: Normal thought process present Assessment & Plan Assessment & Plan (1) Encounter for well woman exam with routine gynecological exam: Code(s): Z01.419 - Encounter for gynecological examination (general) (routine) without abnormal findings Plan Discussed: Current recommendations for pap smears per ASCCP guidelines. Breast awareness and periodic breast exams. Advised to speak with her chute builder for skin surveillance due to her multiple nevi present. Maintain a healthy lifestyle including a well balanced diet and routine exercise. Advised folic acid supplement, can be taken with a multivitamin or vitamin. Patient verbalizes understanding and agrees to the plan of care. She was given opportunity to ask questions and all questions were answered to the best of my ability. RTO in one year for annual cloth shrinking tester examination. This note is constructed using voice recognition software. While every effort h as been made to ensure accuracy, tap and die maker technician errors may have been included. Coding Level of Care Code Est Pt Prev Care 18-39y(96952) Diagnoses Encounter for well woman exam with routine gynecological exam Z01.419
[2024-12-30 14:37] VITALS: BP 110/64; BMI 19.8
== END 2024-12-30 15:28 | disposition home or self-care (01) ==
LOC: HO.HWS 14:34
PROVIDERS: PCP Internal Medicine; Visit Provider Advanced Practice Midwife
DX: Z01.419 Encounter for gynecological examination (general) (routine) without abnormal findings (principal)
CPT/HCPCS: 99395; 99459

== ENCOUNTER → 2024-12-30 14:34 | Outpatient (BNVA) | payer BC, SELFPAY | PROVIDERS: PCP Internal Medicine; Visit Provider Advanced Practice Midwife ==

== ENCOUNTER 2025-06-10 11:15 | Outpatient (AMB) | payer BC, SELFPAY ==
[2025-06-10 11:38] VITALS: BP 82/60; PULSE 66; RESP 18; TEMP 35.7; O2SAT 98; BMI 19.9
--- NOTE | 2025-06-10 11:38 | MHC.PC.OV ---
Vital Signs 06/10/25 11:38 06/10/25 11:49 Height 5 ft 1 in Weight 105 lb 6 oz BMI 19.9 BP 82/60 L 88/60 L Blood Pressure Location Lt brachial Lt brachial Position Sitting Sitting Respiration 18 Pulse 66 Pulse Source Pulse Oximeter Temp 96.2 F L Temp Source Temporal Artery Scan Pulse Oximetry (%) 98 Oxygen Delivery Method Room Air Intake Visit Reasons: Annual P.E Environmental Health Technician Required: No Accompanied by: Self / Same As Patient Allergies allergic rhinitis Allergy (Unknown, Uncoded 12/30/24 14:37) Runny Nose Medication List - Last Reconciled 06/10/25 by Haroon Stinson MD No Known Home Meds Tobacco use date assessed: 06/09/24 Dental Screening Dental Screen Date: 06/10/25 Did you have a dental visit in the last 12 months?: Yes Did you have a dental problem in the last 6 months where you did not have access to dental care?: No Was dental information given to patient?: Patient has dentist HPI Annual P.E HPI Details dizzy 2 weeks , MOREJON, occ sob, occ chest pain PFSH Surgical History H/O ovarian cystectomy Family History (Updated 06/10/25 @ 11:51 by Haroon Stinson MD) Father Myocardial infarct Paternal Grandmother Colon cancer Brother Skin cancer Social History Household Members: Spouse Housing: House Alcohol intake: never Patient Tobacco Use Status: Never used Tobacco service: No Current occupational status: employed Current occupation: IT Sexual orientation: Straight/Heterosexual Gender identity: Female Cognitive needs: No Hearing needs: No Vision needs: No Female Reproductive History Menstrual Age of Menarche: 14 Questionnaire PHQ-9 Over the last 2 weeks, how often have you been bothered by any of the following problems? 1. Little interest or pleasure in doing things: not at all 2. Feeling down, depressed, or hopeless: not at all 3. Trouble falling or staying asleep, or sleeping too much: not at all 4. Feeling tired or having little energy: not at all 5. Poor appetite or overeating: not at all 6. Feeling bad about yourself - or that you are a failure or have let yourself or your family down: not at all 7. Trouble concentrating on things, such as reading the newspaper or watching television: not at all 8. Moving or speaking so slowly that other people could have noticed. Or the opposite - being so fidgety or restless that you have been moving around a lot more than usual: not at all 9. Thoughts that you would be better off or of hurting yourself in some way: not at all Total score: 0 Source: Developed by Drs. Caleb Eubanks, Adriana Linares, Cb Barry and colleagues, with an educational yousif from [employer]. Thrive Questionnaire Date Thrive assessed: 06/10/25 I am a: Patient What is your living situation today?: I have a steady place to live Within the past 12 months, did the food you bought not last and you didn't have the money to get more?: Never true Within the past 12 months, did you worry whether your food would run out before you got money to buy more?: Never true Do you have trouble paying for medicines?: No Do you have trouble getting transportation to medical appointments?: No Do you have trouble paying your heating and electricity bill?: No Do you have trouble taking care of your child, family member or friend?: No Do you have trouble with day-to-day activities such as bathing, preparing meals, shopping, managing finances, etc.?: No Are you currently unemployed and looking for a job?: No Are you interested in more education?: Yes Please select the resources that you would like help with: None Currently or been in a relationship where the following occur: No concerns reported THRIVE Score: 0 AUDIT C Alcohol Use Questionnaire (AUDIT-C) 1. How often do you have a drink containing alcohol?: Never Total Score: 0 HANNAH-7 AMB Questionnaire HANNAH-7 Date HANNAH - 7 assessed: 06/10/25 Feeling nervous, anxious, or on edge: 0 = Not at all Not being able to stop or control worryin = Not at all Worrying too much about different things: 0 = Not at all Trouble relaxin = Not at all Being so restless that it is hard to sit still: 0 = Not at all Becoming easily annoyed or irritable: 0 = Not at all Feeling afraid as if something awful might happen: 0 = Not at all Total HANNAH-7 score (0-4 normal; 5-9 mild; 10-14 moderate; 15-21 severe): 0 Source: Developed by Drs. Caleb Eubanks, Adriana Linares, Cb Barry and colleagues, with an educational yousif from [employer]. Review of Systems Const Denies poor appetite and Denies weakness Eyes Denies no additional complaints ENT Reports Normal hearing present, Denies dizziness, Denies nasal congestion, Denies tinnitus and Denies sore throat Card Denies chest pain, Denies syncope, Denies rapid heart rate and Denies dyspnea Resp Denies cough and Denies dyspnea GI Denies change in stool character, Reports constipation, Denies diarrhea, Denies nausea and Denies vomiting Denies urinary frequency, Denies difficulty voiding and Denies dysuria Neuro Reports Normal hearing present, Denies confusion, Denies dizziness, Denies syncope and Denies weakness Psych Denies confusion Physical exam (Primary Care) Vital Signs: Last Vital Signs Temp 96.2 F L 06/10/25 11:38 Pulse 66 06/10/25 11:38 Resp 18 06/10/25 11:38 BP 88/60 L 06/10/25 11:49 Pulse Ox 98 06/10/25 11:38 Oxygen Delivery Method Room Air 06/10/25 11:38 BMI result Body Mass Index 19.9 Tobacco/Smoking Status: Tobacco use Status Tobacco use date assessed 06/09/24 06/10/25 11:44 Patient Tobacco Use Status Never used Tobacco 06/10/25 11:44 PHQ-9: PHQ-9 Score PHQ-9: Total score 0 06/10/25 11:44 Thrive Assessment: Date of Thrive Assessment Date Thrive assessed 06/10/25 06/10/25 11:44 Currently or been in a relationship where the following occur: No concerns reported Const General: No confusion Orientation/consciousness: No confusion HENMT Head: Yes normocephalic Ears: external ears normal and TM's normal bilaterally Face and sinus: Yes normal facial exam Mouth: moist mucous membranes Throat: Yes tonsils normal Eyes Conjunctivae: conjunctivae normal Pupils: Equal, round and reactive pupils present and Pupil accommodation reflex normal Direct Ophthalmoscopy: normal light reflex Neck Neck: No lymphadenopathy Thyroid: Thyroid normal Chest Chest palpation & inspection: normal inspection of the chest Resp Effort & Inspection: normal respiratory effort and no audible wheezes Auscultation: clear to auscultation bilaterally, no crackles, no wheezes and lung sounds not diminished Cardio Rate: regular rate Rhythm: regular rhythm Peripheral pulses: radial pulses present and dorsalis pedis present GI Palpation (GI): no masses Auscultation: normal bowel sounds and normoactive bowel sounds Rectal Exam - Female: deferred Skin General skin exam: no rashes or lesions noted Rashes: no rashes Neuro General: No confusion Cranial nerves: Yes Equal, round and reactive pupils present and Yes Normal hearing present Cognition (Neuro): normal cognition Gait exam (Neuro): Normal gait present Motor exam (neuro): 5/5 motor strength present throughout Deep tendon reflexes (DTR's): Right brachioradialis reflex intensity grade: 2+, Left brachioradialis reflex intensity grade: 2+, Right patellar reflex intensity grade: 2+ and Left patellar reflex intensity grade: 2+ Extrem General: No edema Coding Level of Care Code Est Pt Prev Care 18-39y(11854) Diagnoses Annual physical exam Z00.00 Impaired glucose tolerance R73.02 Hypercholesterolemia E78.00 GERD (gastroesophageal reflux disease) K21.9 Vitamin D deficiency E55.9 SOB (shortness of breath) R06.02 Assessment & Plan Assessment & Plan (1) Annual physical exam: Code(s): Z00.00 - Encounter for general adult medical examination without abnormal findings Category: Medical Plan: Patient is advised to eat healthy, keep well hydrated, keep active and have adequate sleep. (2) Impaired glucose tolerance: Code(s): R73.02 - Impaired glucose tolerance (oral) Category: Medical Plan: Decrease the amount of carbohydrate intake, pasta, bread, rice and potatoes are all sugar and that is aside from all the sweet stuff, remember that fruits are good but they are Sweet also. (3) Hypercholesterolemia: Code(s): E78.00 - Pure hypercholesterolemia, unspecified Category: Medical Plan: Avoid fried foods, chicken skin, eggs, butter margarine, pastries and meat. Be it pork or beef they have a lot of cholesterol (4) GERD (gastroesophageal reflux disease): Code(s): K21.9 - Gastro-esophageal reflux disease without esophagitis Category: Medical Plan: Avoid the foods that causes that usually spicy foods, tomato products, juices, coffee, soda and foods that your sensitive to. After eating do not lie down, allow 3-4 hours before in lie down. And keep the head of bed above 30 degrees to avoid the acid from going up. (5) Vitamin D deficiency: Code(s): E55.9 - Vitamin D deficiency, unspecified Category: Medical Plan: Vitamin-D 3772-5710 units once a day (6) SOB (shortness of breath): Code(s): R06.02 - Shortness of breath Category: Medical Plan History of Present Illness The patient is a 35-year-old female presenting for a physical examination and management of chronic conditions. The patient has a history of Gastroesophageal Reflux Disease (GERD), which has required dietary modifications such as avoiding spicy foods, vinegar, and certain fruits like peaches and apples due to associated allergies. She reports experiencing heartburn more frequently, necessitating these dietary changes. The patient also has hypercholesterolemia, which was noted in her last blood work conducted in November 2023. She has been advised to manage this condition through lifestyle modifications. Her blood work also indicated mild leukopenia and elevated blood sugar levels, which are being monitored. The patient has not reported any new symptoms related to these findings. Additionally, the patient has a significant vitamin D deficiency, with levels recorded at about 10, well below the desired level of 30. She has been advised to increase her vitamin D intake through supplements and sun exposure, although she reports gastrointestinal discomfort with prolonged supplement use. The patient denies any alcohol or tobacco use and reports no recreational drug use. She maintains an active lifestyle, attempting to exercise regularly, including using a treadmill for three miles a day. She also reports adequate hydration, consuming six to eight glasses of water daily. Health Maintenance - Mammogram up-to-date as of 2022 - Follow-up with gynecology scheduled for December 2024 - Advised to increase vitamin D intake through supplements and sun exposure - Encouraged to maintain an active lifestyle and adequate hydration Social History - Exercise: Patient attempts to exercise regularly, including using a treadmill for three miles a day. - Substance Use: Denies alcohol, tobacco, and recreational drug use. - Hydration: Consumes six to eight glasses of water daily. Review of Systems - General: Denies fever, nausea, or vomiting. - Cardiovascular: Reports occasional chest pain and tightness. - Respiratory: Denies shortness of breath or wheezing. - Gastrointestinal: Reports heartburn and difficulty swallowing at times. - Neurological: Reports dizziness occasionally, denies headaches. - Musculoskeletal: Denies joint pain or swelling. - Dermatological: Reports itchiness in the throat when eating certain fruits. Physical Exam General: Cooperative, healthy appearing, comfortable, no acute distress and well developed Orientation: Patient oriented x3 Limitations: No limitations Head: Normal to inspection Ears: Hearing grossly normal bilaterally Nose: Normal external nose present Face and sinus: Normal facial exam Eyes: Appearance normal, both eyes and all related structures Neck: Normal visual inspection and Yes full ROM Respiratory: Normal respiratory effort and able to speak in complete sentences. Clear to auscultation bilaterally Cardiovascular: Regular rate and rhythm. Normal S1 and S2 GI: Normal to inspection. Soft to palpation and nontender Skin: No rashes or lesions noted Neuro: Patient oriented x3 Extremities: Normal to inspection Results - Labs: Mild leukopenia, elevated blood sugar, elevated cholesterol, low vitamin D levels. Plan The patient will undergo further blood tests to monitor her blood sugar and cholesterol levels, with a focus on fasting glucose to assess for diabetes risk. She is advised to continue lifestyle modifications to manage hypercholesterolemia and to increase her vitamin D intake through supplements and sun exposure, despite previous gastrointestinal discomfort with supplements. A lung function test and chest x-ray are planned to evaluate any underlying respiratory issues, given her occasional chest tightness and dizziness. The patient is encouraged to maintain her current exercise regimen and hydration levels, and to avoid allergens that exacerbate her GERD symptoms. Preventative care measures include ensuring her mammogram is up-to-date and scheduling a follow-up with gynecology in December 2024. Patient was informed and verbally consented to the use of an ambient scribe for clinic note documentation during this visit. Discussion Notes During the visit, I discussed with the patient the importance of monitoring her blood sugar and cholesterol levels, emphasizing the need for fasting before the blood test to ensure accurate results. We reviewed her vitamin D deficiency and the benefits of supplementation and sun exposure, despite her previous gastrointestinal discomfort with supplements. I also explained the rationale for the lung function test and chest x-ray to assess any respiratory issues, given her symptoms of chest tightness and dizziness. Preventative care measures were reinforced, including the importance of maintaining up-to-date mammograms and scheduling gynecological follow-ups. Patient Instructions - Schedule and complete fasting blood tests for glucose and cholesterol. - Increase vitamin D intake through supplements and sun exposure. - Continue current exercise routine and maintain hydration. - Avoid foods and allergens that trigger GERD symptoms. - Ensure mammogram is up-to-date and attend gynecology follow-up in December 2024. Orders: Orders Complete Blood Count Auto Diff Today E78.00 - Pure hypercholesterolemia, unspecified Free T4 (Free Thyroxine) Today E78.00 - Pure hypercholesterolemia, unspecified Hemoglobin A1c Today E78.00 - Pure hypercholesterolemia, unspecified PFT pulmonary function test Today R06.02 - Shortness of breath XR chest 2V Today R06.02 - Shortness of breath Comprehensive Met. Panel Today E78.00 - Pure hypercholesterolemia, unspecified Lipid Panel Today E78.00 - Pure hypercholesterolemia, unspecified UA CC w/rflx Micro + Cult Today E78.00 - Pure hypercholesterolemia, unspecified, R30.0 - Dysuria Thyroid Stimulating Hormone Today E78.00 - Pure hypercholesterolemia, unspecified Vitamin B12 and Folate Today E78.00 - Pure hypercholesterolemia, unspecified Vitamin D 25-OH Total Today E78.00 - Pure hypercholesterolemia, unspecified
[2025-06-10 11:49] VITALS: BP 88/60
== END 2025-06-10 12:07 | disposition home or self-care (01) ==
LOC: HO.HMCH 11:16
PROVIDERS: PCP Internal Medicine; Visit Provider Internal Medicine
DX: Z00.00 Encounter for general adult medical examination without abnormal findings (principal); R73.02 Impaired glucose tolerance (oral); E78.00 Pure hypercholesterolemia, unspecified; K21.9 Gastro-esophageal reflux disease without esophagitis; E55.9 Vitamin D deficiency, unspecified; R06.02 Shortness of breath